=== PATIENT | female | born 1995 | race Caucasian/White ===

== ENCOUNTER 2019-01-17 11:20 | Emergency (ER) | payer OTHER ==
[~2019-01-17] VITALS: Ht 157.5 cm; Wt 98.9 kg
[2019-01-17 11:49] VITALS: BP 150/79; Ht 157.5 cm; Wt 98.9 kg
[2019-01-17] MEDS ORDERED: ZOLOFT50 MG PO (11:52)
[2019-01-17 12:36] LABS: APPEARANCE HAZY (CLEAR); COLOR YELLOW (YELLOW); SPECIFIC GRAVITY 1.005 (1.005-1.020)
[2019-01-17 12:37] LABS: BILIRUBIN NEGATIVE (NEGATIVE); GLUCOSE NEGATIVE (NEGATIVE); KETONE NEGATIVE (NEGATIVE); NITRITE NEGATIVE (NEGATIVE); PROTEIN NEGATIVE (NEGATIVE); UROBILINOGEN NORMAL (NORMAL)
[2019-01-17 12:38] LABS: BACTERIA FEW /hpf (NONE SEEN); EPITHELIAL CELLS 0-5 /hpf (0-5); RED CELLS - URINE 0-5 /hpf (0-5)
[2019-01-17 12:48] LABS: HCG SERUM NEGATIVE (NEGATIVE)
[2019-01-17 13:34] LABS: BASOPHILS 0.5 % (0-2); EOSINOPHILS 0.7 % (0-7); HEMOGLOBIN 13.9 g/dL (12-16); IMMATURE GRANULOCYTES 0.2 % (0-5); LYMPHOCYTES 22.6 % (15-50); MCH 29.8 pg (26.0-34.0); MCHC 34.8 g/dL (31.0-37.0); MCV 85.8 fL (80.0-100.0); MEAN PLATELET VOLUME 9.1 fL (7.4-10.4); MONOCYTES 6.5 % (2-11); NEUTROPHILS 69.5 % (40-80); PLATELET COUNT 494 10x3/uL (130-400); RBC 4.66 10x6/uL (4.00-5.40); RDW 12.5 % (11.5-14.5); WBC 8.9 10x3/uL (4.8-10.8)
[2019-01-17] MEDS ORDERED: MACROBID100 MG PO (13:47)
== END 2019-01-17 14:08 | disposition home or self-care (01) ==
LOC: D.ER 11:20
PROVIDERS: Family Medicine
DX: N91.2 Amenorrhea, unspecified (principal)